=== PATIENT | female | born 1960 | race Caucasian/White ===

== ENCOUNTER 2022-06-23 15:40 | Emergency (ER) | payer OTHER, SELFPAY ==
--- NOTE | ~2022-06-23 | XR_ITS ---
XR ankle LT min 3V DATE: 06/23/2022 16:07 INDICATION: Twisted ankle today. Lateral pain. TECHNIQUE: 4 views COMPARISON: None FINDINGS: There is a lateral malleolar fracture with approximately one cortical width posterolateral displacement and prominent overlying soft tissue swelling. Small transverse fracture near the tip of the medial malleolus. There is overlying medial soft tissue swelling. The posterior malleolus and the ankle mortise. Intact. Very prominent posterior calcaneal enthesopathy and calcification along the distal Achilles tendon. M oderately prominent plantar calcaneal enthesopathy. IMPRESSION: Bimalleolar ankle fracture Reviewed, dictated and finalized at location A. IMPRESSION: Bimalleolar ankle fracture
--- NOTE | 2022-06-23 15:50 | ED.LOWEXIN ---
HPI - Extremity Injury (Lower) General Chief Complaint: Extremity Injury, Lower Stated Complaint: Left Ankle Pain Time Seen by Provider: 06/23/22 16:20 Source: patient and RN notes reviewed Mode of arrival: ambulatory Limitations: no limitations History of Present Illness HPI Narrative: 61-year-old female presents with concern for left ankle pain and swelling. She reports she tripped over a pair of shoes today and had immediate left ankle pain. She reports swelling. She reports pain at rest, she is not able to bear weight on the extremity. She took 800 mg ibuprofen prior to arrival with mild relief MD complaint: ankle injury Related Data Home Medications Medication Instructions Recorded Confirmed alprazolam 0.25 mg tablet 0.25 mg PO DIRECTED 06/23/22 06/23/22 bisoprolol 5 1 tablet PO DAILY 06/23/22 06/23/22 mg-hydrochlorothiazide 6.25 mg tablet duloxetine 30 mg capsule,delayed 30 mg PO DAILY 06/23/22 06/23/22 release gabapentin 300 mg capsule 300 mg PO DIRECTED 06/23/22 06/23/22 metformin 500 mg tablet 1,000 mg PO BID 06/23/22 06/23/22 pioglitazone 30 mg tablet 30 mg PO DAILY 06/23/22 06/23/22 tramadol 50 mg tablet 50 mg PO DIRECTED 06/23/22 06/23/22 Allergies Allergy/AdvReac Type Severity Reaction Status Date / Time sulfamethoxazole Allergy Other Verified 06/23/22 16:03 [From Bactrim] trimethoprim [From Bactrim] Allergy Other Verified 06/23/22 16:03 Review of Systems Review of Systems: CONSTITUTIONAL: Denies malaise, chills, sweats, or fever. SKIN: Denies rash or itching, open skin, laceration, abrasion, redness, warmth, swelling. MUSCULOSKELETAL: Reports left ankle pain, swelling NEUROLOGIC: Denies numbness, weakness All systems reviewed & are unremarkable except as noted in HPI and below PMFSH Comments At time of signature, agree with nursing past medical, surgical, social and family history. There is no relevant family history pertinent to the presenting complaint Exam Narrative: GENERAL: Well-appearing, well-nourished, and in no acute distress. HEAD: Normocephalic, atraumatic. EYES: PERRLA, conjunctivae clear NECK: Supple. CHEST: Speaks in full sentences. No respiratory distress. HEART: Regular rate and rhythm. Normal and equal peripheral pulses. EXTREMITIES: Left ankle, foot have grossly normal strength and sensation, limited range of motion likely due to pain and swelling. Moderate lateral ankle edema without significant ecchymosis. 5/5 strength with digit flexion and extension. Normal sensation with sensitivity to light touch and pain. Lateral ankle tenderness. No open wounds, no skin tenting, no devitalized tissue or atrophy, no trophic changes, no obvious deformity, alignment normal, nearby joints and structures intact. Distal pulses palpable and equal bilaterally, skin warm, dry, pink. Capillary refill less than 3 seconds. SKIN: Warm, dry, no rash. NEURO: Alert and oriented x3. PSYCH: Normal mood and affect Course Course Emergency Course: Will discharge patient with a short course of opiates. Went over the risks of the medication. Advised patient to not mix with other products containing acetaminophen, to not combine with alcohol, or other illicit drugs, to not drive or operate machinery, and to refrain from any activity that will require complete attention while taking this medication. Patient is aware of diagnosis, understands and agrees to treatment plan. Anticipatory guidance given. Patient agrees to follow-up as directed and is aware of reasons to seek care at the emergency department. Portions of this record may have been created with voice recognition software Level of Care: Express Care Visit Vital Signs Vital signs: Reviewed. Procedures Orthopedic Splinting/Casting Injury #1: Splinting/Casting Date: 06/23/22 Splinting/Casting Time: 16:32 Side: left Lower Extremity Injury Location: ankle Splint: customized in ED OCL: alon
[2022-06-23 15:55] VITALS: BP 142/70; PULSE 68; RESP 20; TEMP 36.5; O2SAT 98
== END 2022-06-23 17:35 | disposition home or self-care (01) ==
PROVIDERS: Emergency Provider Nurse Practitioner; PCP Family Medicine
DX: S82.842A Displaced bimalleolar fracture of left lower leg, initial encounter for closed fracture (principal); W18.09XA Striking against other object with subsequent fall, initial encounter; E11.42 Type 2 diabetes mellitus with diabetic polyneuropathy; I10 Essential (primary) hypertension; M19.90 Unspecified osteoarthritis, unspecified site; F41.9 Anxiety disorder, unspecified; Z79.84 Long term (current) use of oral hypoglycemic drugs
CPT/HCPCS: 29515; 73610; 99214; G0463